=== PATIENT | female | born 1980 ===

== ENCOUNTER 2024-08-03 14:06 | Emergency (ER) | payer SELFPAY ==
[~2024-08-03] VITALS: Ht 172.7 cm; Wt 103.8 kg
[2024-08-03 14:46] VITALS: BP 203/140; PULSE 88; RESP 20; TEMP 97.7; O2SAT 100
== END 2024-08-03 17:56 | disposition left against medical advice (07) ==
LOC: ER 14:06
DX: R21 Rash and other nonspecific skin eruption (principal); Z53.21 Procedure and treatment not carried out due to patient leaving prior to being seen by health care provider